=== PATIENT | female | born 2000 | race Two or more races ===

== ENCOUNTER 2022-11-08 23:41 | Emergency (ER) | payer MEDICAID, OTHER ==
[~2022-11-08] VITALS: Ht 162.6 cm; Wt 65.8 kg
[2022-11-09] MEDS ORDERED: CYCLOBENZAPRINE 10 MG TABLET PO ONE (01:30)
[2022-11-09] MEDS ORDERED: CYCLOBENZAPRINE 10 MG TABLET ONE (01:33)
[2022-11-09] MEDS ORDERED: KETOROLAC TROMETHAMINE INJ 30 MG/ML VIAL ONE (01:40)
[2022-11-09] MEDS ORDERED: CYCL5TAB PO ×2 (01:43→02:17)
[2022-11-09] MEDS ORDERED: KETOROLAC TROMETHAMINE INJ 60 MG/2 ML VIAL IM ONE (02:00)
[2022-11-09 02:20] VITALS: BP 120/69; TEMP 99.2; O2SAT 100
== END 2022-11-09 02:20 | disposition home or self-care (01) ==
LOC: ER 23:46
DX: M54.6 Pain in thoracic spine (principal); Z88.8 Allergy status to other drugs, medicaments and biological substances
CPT/HCPCS: 99283; 96372; J1885

== ENCOUNTER 2023-04-21 11:53 | Emergency (ER) | payer OTHER ==
[~2023-04-21] VITALS: Ht 162.6 cm; Wt 65.8 kg
[~2023-04-21 11:53] MED LIST: CYCL5TAB PO
[2023-04-21 12:54] LABS: BASOPHILS % (AUTO) 0.3 % (0.0-2.0); EOSINOPHILS # (AUTO) 0.1 K/uL (0.0-0.7); EOSINOPHILS % (AUTO) 0.9 % (0.0-6.0); HEMOGLOBIN 12.2 g/dL (11.5-14.8); MONOCYTES # (AUTO) 0.8 K/uL (0.1-1.30); NEUTROPHILS # (AUTO) 10.3 K/uL (1.8-8.9); WHITE BLOOD COUNT (AUTO) 12.6 K/uL (4.3-11.0)
[2023-04-21 12:57] LABS: HEMATOCRIT 37 % (33-45); LYMPHOCYTES # (AUTO) 1.4 K/uL (0.8-4.8); MEAN CORPUSCULAR HEMOGLOBIN 29 PG (26.0-33.0); MEAN CORPUSCULAR HGB CONC 33 g/dl (31.0-36.0); MEAN CORPUSCULAR VOLUME 86 fL (82-100); NEUTROPHILS % (AUTO) 81.8 % (43.0-81.0); PLATELET COUNT (AUTO) 263 K/uL (150-450); RED BLOOD CELL COUNT(AUTO) 4.29 MIL/uL (4.0-5.2); RED CELL DISTRIBUTION WIDTH 13.1 % (11.5-15.0)
[2023-04-21 13:01] LABS: CREATININE 0.6 mg/dL (0.6-1.3); POTASSIUM 4.1 mmol/L (3.5-5.1)
[2023-04-21] MEDS ORDERED: IBUP-1953 PO (13:51)
[2023-04-21] MEDS ORDERED: P-EP-295 PO (13:51)
[2023-04-21 14:02] VITALS: BP 118/67; TEMP 98.3; O2SAT 100
== END 2023-04-21 14:03 | disposition home or self-care (01) ==
LOC: ER 12:31
DX: J02.8 Acute pharyngitis due to other specified organisms (principal); Z88.8 Allergy status to other drugs, medicaments and biological substances; Z60.2 Problems related to living alone
CPT/HCPCS: 36415; 80048-TC; 85025-TC; 86403-TC

== ENCOUNTER 2023-10-09 16:59 | Emergency (ER) | payer OTHER ==
[~2023-10-09] VITALS: Ht 162.6 cm; Wt 65.8 kg
[~2023-10-09 16:59] MED LIST changes: +IBUP-1953 PO; +P-EP-295 PO
[2023-10-09] MEDS ORDERED: dexaMETHasone SOD PHOSPHATE 1 ML ONE (17:41)
[2023-10-09] MEDS ORDERED: IBUPROFEN 600 MG TABLET ONE (17:41)
[2023-10-09] MEDS: dexaMETHasone SOD PHOSPHATE 10 MG/ML VIAL MC ONE (17:45)
[2023-10-09] MEDS: IBUPROFEN 600 MG TABLET PO ONE (17:45)
[2023-10-09] MEDS ORDERED: AMOX875T2 PO (18:27)
[2023-10-09 18:39] VITALS: BP 115/59; TEMP 100.9; O2SAT 97
== END 2023-10-09 18:40 | disposition home or self-care (01) ==
LOC: ER 17:06
DX: H66.92 Otitis media, unspecified, left ear (principal); J02.9 Acute pharyngitis, unspecified; Z79.1 Long term (current) use of non-steroidal anti-inflammatories (NSAID); Z79.899 Other long term (current) drug therapy; Z20.822 Contact with and (suspected) exposure to COVID-19; Z88.5 Allergy status to narcotic agent; Z88.1 Allergy status to other antibiotic agents
CPT/HCPCS: 99283; 87426; 87070; 87880; J1100; 86403-TC